=== PATIENT | female | born 1955 | race Caucasian/White ===

== ENCOUNTER 2018-02-08 16:46 | Emergency (ER) | payer OTHER ==
[~2018-02-08] VITALS: Ht 170.2 cm; Wt 68.0 kg
[~2018-02-08 16:46] MED LIST: CRUTCH3 XX; Percocet 5-3251 EACH PO; TRAZ100 PO
[2018-02-08] MEDS ORDERED: Zithromax250 MG PO (18:13)
[2018-02-08] MEDS ORDERED: Phenergan6.25 MG/5 PO (18:13)
== END 2018-02-08 18:17 | disposition home or self-care (01) ==
LOC: ER 16:46
DX: R05 Cough (principal); Z87.01 Personal history of pneumonia (recurrent); Z79.899 Other long term (current) drug therapy
CPT/HCPCS: 71046; 99283